=== PATIENT | male | born 1990 | race Caucasian/White ===

== ENCOUNTER 2024-10-23 21:08 | Emergency (ER) | payer OTHER ==
[~2024-10-23] VITALS: Ht 177.8 cm; Wt 83.9 kg
[2024-10-23 21:26] VITALS: BP 140/81; TEMP 98.2; O2SAT 98
[2024-10-23] MEDS ORDERED: KETOROLAC TROMETHAMINE INJ 60 MG/2 ML VIAL IM ONE (22:25)
[2024-10-23] MEDS: KETOROLAC TROMETHAMINE INJ 30 MG/ML VIAL IM ONE (22:43)
[2024-10-23] MEDS ORDERED: PRED50TA PO (23:26)
[2024-10-23] MEDS ORDERED: METH-647 PO (23:26)
== END 2024-10-23 23:40 | disposition home or self-care (01) ==
LOC: ER 21:15
DX: M51.372 Other intervertebral disc degeneration, lumbosacral region with discogenic back pain and lower extremity pain (principal)
CPT/HCPCS: 99285; 72131; 96372; J1885